=== PATIENT | male | born 1955 | race Caucasian/White ===

== ENCOUNTER 2020-05-11 00:04 | Emergency (ER) | payer MEDICARE ==
[~2020-05-11] VITALS: Ht 175.3 cm; Wt 93.0 kg
[2020-05-11 00:56] LABS: Source, Urine Clean Catch
[2020-05-11 01:00] LABS: Appearance, Urine Clear (Clear); BASOPHILS ABSOLUTE AUTO 0.04 K/mm3 (0.00-0.23); BASOPHILS PERCENT AUTO 1 % (0-2); Bilirubin, Urine Neg (Neg); Blood, Urine 1+ (Neg); Color, Urine Yellow (P-Yellow); EOSINOPHILS ABSOLUTE AUTO 0.18 K/mm3 (0.00-0.68); EOSINOPHILS PERCENT AUTO 3 % (0-6); Glucose Qualitative, Urine Neg (Neg); Hematocrit 45.7 % (37.0-53.0); Hemoglobin 14.9 g/dL (13.5-17.5); IMMATURE GRAN ABSOLUTE AUTO 0.03 K/mm3 (0.00-0.10); IMMATURE GRAN PERCENT AUTO 0 % (0-1); Ketones, Urine 1+ (Neg); LYMPHOCYTES ABSOLUTE AUTO 1.47 K/mm3 (0.84-5.20); LYMPHOCYTES PERCENT AUTO 21 % (21-46); Leukocyte Esterase, Urine 1+ (Neg); MONOCYTES ABSOLUTE AUTO 0.49 K/mm3 (0.16-1.47); MONOCYTES PERCENT AUTO 7 % (4-13); Mean Corpuscular HGB 28.7 pg (26.0-34.0); Mean Corpuscular HGB Conc 32.6 g/dL (31.5-36.5); Mean Corpuscular Volume 88 fL (80-100); Mean Platelet Volume 9.3 fL (9.1-12.4); NEUTROPHILS ABSOLUTE AUTO 4.94 K/mm3 (1.96-9.15); NEUTROPHILS PERCENT AUTO 69 % (41-73); Nitrite, Urine Neg (Neg); Platelet Count 180 K/mm3 (150-400); Protein, Urine 2+ (Neg); RDW Coefficient Variation 13.4 % (11.7-14.2); RDW Standard Deviation 43.9 fL (35.1-46.3); Specific Gravity, Urine 1.025 (1.003-1.022); Urobilinogen, Urine NORM (Normal); White Blood Cell Count 7.15 K/mm3 (4.00-11.30)
[2020-05-11 01:06] LABS: Red Blood Cells, Urine 0-2 /hpf (0-2); Squamous Epithelial Cells Not Seen /hpf (Few)
[2020-05-11 01:07] LABS: Bacteria Mod /hpf; Mucus Light (0-Heavy)
[2020-05-11 01:17] LABS: Alanine Aminotransfer (ALT/SGP 46 U/L (12-78); Albumin, Blood 3.7 g/dL (3.4-5.0); Albumin/Globulin Ratio 1.1 (0.8-1.8); Alk Phos 57 U/L (50-136); Anion Gap 5 mmol/L (6-16); Aspartate Aminotrans (AST/SGOT 43 U/L (12-37); Bilirubin, Total 0.4 mg/dL (0.1-1.0); Blood Urea Nitrogen 19 mg/dL (8-24); CO2, Blood 29 mmol/L (21-32); Calcium, Blood 8.9 mg/dL (8.5-10.1); Chloride, Blood 109 mmol/L (98-108); Creatinine, Blood 0.95 mg/dL (0.60-1.20); Globulin, Blood 3.3 g/dL (2.2-4.0); Glomerular Filtration Rate >60 (60-); Glucose, Blood 131 mg/dL (70-99); Potassium, Blood 4.7 mmol/L (3.5-5.5); Sodium, Blood 143 mmol/L (136-145)
== END 2020-05-11 02:26 | disposition home or self-care (01) ==
LOC: ER 00:04
PROVIDERS: Emergency Medicine
DX: R10.9 Unspecified abdominal pain (principal); Z88.5 Allergy status to narcotic agent; Z87.442 Personal history of urinary calculi
CPT/HCPCS: 36415; 74176; 80053; 81001; 85025; 87086; 96374; 96375; 99284-25; A9270; J1170; J1885; J7030

== ENCOUNTER 2020-07-03 18:57 | Inpatient (IN) | payer MEDICARE ==
[~2020-07-03] VITALS: Ht 175.3 cm; Wt 96.3 kg
[2020-07-03 19:36] LABS: BASOPHILS ABSOLUTE AUTO 0.03 K/mm3 (0.00-0.23); BASOPHILS PERCENT AUTO 1 % (0-2); EOSINOPHILS ABSOLUTE AUTO 0.09 K/mm3 (0.00-0.68); EOSINOPHILS PERCENT AUTO 1 % (0-6); Hematocrit 45.4 % (37.0-53.0); Hemoglobin 15.7 g/dL (13.5-17.5); IMMATURE GRAN ABSOLUTE AUTO 0.03 K/mm3 (0.00-0.10); IMMATURE GRAN PERCENT AUTO 1 % (0-1); LYMPHOCYTES ABSOLUTE AUTO 2.35 K/mm3 (0.84-5.20); LYMPHOCYTES PERCENT AUTO 37 % (21-46); MONOCYTES PERCENT AUTO 6 % (4-13); Mean Corpuscular HGB 28.8 pg (26.0-34.0); Mean Corpuscular HGB Conc 34.6 g/dL (31.5-36.5); Mean Corpuscular Volume 83 fL (80-100); Mean Platelet Volume 9.6 fL (9.1-12.4); NEUTROPHILS ABSOLUTE AUTO 3.41 K/mm3 (1.96-9.15); NEUTROPHILS PERCENT AUTO 54 % (41-73); Platelet Count 181 K/mm3 (150-400); RDW Coefficient Variation 13.2 % (11.7-14.2); RDW Standard Deviation 39.6 fL (35.1-46.3); Red Blood Cell Count 5.46 M/mm3 (4.30-5.90); White Blood Cell Count 6.31 K/mm3 (4.00-11.30)
[2020-07-03 20:01] LABS: Alanine Aminotransfer (ALT/SGP 43 U/L (12-78); Albumin, Blood 3.9 g/dL (3.4-5.0); Albumin/Globulin Ratio 1.1 (0.8-1.8); Alk Phos 57 U/L (50-136); Anion Gap 8 mmol/L (6-16); Aspartate Aminotrans (AST/SGOT 36 U/L (12-37); Bilirubin, Total 0.4 mg/dL (0.1-1.0); Blood Urea Nitrogen 15 mg/dL (8-24); Bun/Creatinine Ratio 17.3 (12.0-20.0); CO2, Blood 27 mmol/L (21-32); Calcium, Blood 9.6 mg/dL (8.5-10.1); Chloride, Blood 104 mmol/L (98-108); Creatinine, Blood 0.87 mg/dL (0.60-1.20); Globulin, Blood 3.5 g/dL (2.2-4.0); Glomerular Filtration Rate >60 (60-); Glucose, Blood 158 mg/dL (70-99); Potassium, Blood 3.7 mmol/L (3.5-5.5); Sodium, Blood 139 mmol/L (136-145); Total Protein, Blood 7.4 g/dL (6.4-8.2); Troponin I 0.324 ng/mL (0.000-0.040)
[2020-07-03] MEDS ORDERED: LOSARTAN POTASS25 M2 PO (21:14)
[2020-07-03] MEDS ORDERED: FINA5 PO (21:15)
[2020-07-03] MEDS ORDERED: DEPO-TESTO200 MG/12 IM (21:15)
[2020-07-03] MEDS ORDERED: OMEP20ER PO (21:16)
[2020-07-03] MEDS ORDERED: TAMSULOSIN HCL0.4 M1 PO (21:16)
[2020-07-03] MEDS ORDERED: MOBIC15 MG PO (21:17)
[2020-07-03] MEDS ORDERED: METF500 PO (21:17)
[2020-07-04 06:01] LABS: CHOL/HDL RATIO 3.6; Cholesterol 159 mg/dL (50-200); HDL Cholesterol 44 mg/dL (>39); LDL/HDL RATIO 2.1; Low Density Lipoprotein Chol 92 mg/dL (0-110); Triglycerides 115 mg/dL (30-160); Very Low Density Lipoprot Chol 23 mg/dL (6-32)
--- NOTE | 2020-07-04 06:01 | NUR ---
SHIFT SUMMARY PT RESTED WELL THROUGH NIGHT. ALERT AND ORIENTED - ABLE TO MAKE NEEDS KNOWN. SATS >90% ON ROOM AIR. TELE NSR. NO C/O CHEST PAIN.VSS. HEP GTT STARTED - ADJUSTMENTS MADE PER PHARMACY - SEE EMAR. INDEPENDENT IN USING URINAL AT BEDSIDE. NO BM. CARDIOLOGY CONSULTED - CALLED ANSWERING SERVICE. PENDING TROP THIS AM. CALL LIGHT WITHIN REACH, BED IN LOWEST POSITION. WILL CONTINUE TO MONITOR.
[2020-07-04 09:58] LABS: Influenza A, PCR NEGATIVE (NEGATIVE); Influenza B, PCR NEGATIVE (NEGATIVE); Resp Syncytial Virus, PCR NEGATIVE (NEGATIVE); SARS-Cov-2 (COVID-19) PCR, MMC NEGATIVE (NEGATIVE)
--- NOTE | 2020-07-04 11:38 | NUR ---
PT TO NIB ADJUSTER AT THIS TIME.
--- NOTE | 2020-07-04 15:27 | NUR ---
CARE COORDINATION REFERRAL - ADMIT:07/04/20 DISCHARGE: DX: NSTEMI CC:JESE AMBER CALL: RESIDENCE: HOME CAREGIVER: ZINA JAIME, SPOUSE / PARTNER, DX: SUSPECTED COVID, DM-TYPE 2, SPLENOMEGALY, SEE LIST DME: KNEE IMMOBILIZER CCM: NONE HOME HEALTH: NONE SUMMARY: ADMIT 07/04/20 07/04/20- PER CHART REVIEW, PT IS TO HAVE ANGIOGRAM DONE TODAY. DR. NUR SAW PT. PT DID DISCLOSE THAT HE HAS RECENTLY DIAGNOSED WITH LARGE HEPATOCARCINOMA WITH MULTIPLE TUMORS IN LIVER. HE STATED THAT HE HAS AN APPT LATER THIS WEEK WITH [facility] [facility] TREAT[place]. D/C PLAN WILL FOLLOW FOSTER WINDER RECOMMENDATIONS POST-ANGIOGRAM. -KEVYN
--- NOTE | 2020-07-04 19:27 | NUR ---
SHIFT SUMMARY: PT S/P BALLOON ANGIOPLASTY WITH RT RADIAL ACCESS SITE AND TR BAND. AIR HAS BEEN DEFLATED WITH NO SIGNS OF HEMATOMA OR EXTERNAL BLEEDING. PT DENIES CHEST PAIN OR SOB, MEDICATED PER EMAR FOR C/O NAUSEA AND HEADACHE THAT HAVE RESOLVED. PT CONTINUES A&O, ABLE TO MAKE NEEDS KNOWN. REPORT TO ISAC ARANDA.
--- NOTE | 2020-07-04 20:05 | NUR ---
REMOVED TR BAND AT 2000 - SOME MINOR SWELLING PROXIMAL TO THE TR BAND SITE, WHEN TR BAND REMOVED, NO INCREASE IN SWELLING OR SIGNS OF BLEEDING. TEGADERM PLACED OVER TR SITE, WRIST IMMOBILIZER IN PLACE. WILL CONTINUE TO MONITOR. VSS.
--- NOTE | 2020-07-05 05:13 | NUR ---
SHIFT SUMMARY PT RESTED WELL THROUGH THE NIGHT - ALERT AND ORIENTED, ABLE TO MAKE NEEDS KNWON. SATS >90% ON ROOM AIR. TELE NSR. PT VOIDING TO TOILET. NO BM. TR BAND WAS REMOVED AT 1999 - NO SIGNS OF WORSENING SWELLING. C/D/I. VSS. CALL LIGHT WITHIN REACH, BED IN LOWEST POSITION. WILL CONTINUE TO MONITOR.
--- NOTE | 2020-07-05 07:39 | NUR ---
ASSUMED CARE FROM LEVI RN PT HAS BEEN INDEPENDENT IN THE ROOM THIS MORNING. PT DENIES CHEST PAIN AND PRESSURE. PT DOES HAVE SLIGHTLY ELEVATED BP THIS MORNING AND WAS GIVEN PRN HYDRALIZINE, DR. NUR VERBALLY CONFIRMED APRESOLINE PARAMETERS SBP 160 OR GREATER. PT IS NOW RESTING IN HIS ROOM, WILL RECHECK BP THIS MORNING
[2020-07-05] MEDS ORDERED: AMLO5 PO (09:13)
[2020-07-05] MEDS ORDERED: CLOP75 PO (09:14)
[2020-07-05] MEDS ORDERED: ASPI81CH PO (09:14)
[2020-07-05] MEDS ORDERED: LIPITOR80 MG PO (09:15)
[2020-07-05] MEDS ORDERED: NITROGLYCERIN0.4 M2 SL (09:15)
--- NOTE | 2020-07-05 12:01 | NUR ---
DISCHARGE PT DISCHARGED FROM PCU AT APPROXIMATELY 1145. EDUCATION REGARDING NEW MEDICATION AND RADIAL SITE TO THE PT AND HIS SPOUSE. PT WAS UNDERSTANDING. PT LEFT VIA WHEELCHAIR AND WILL FOLLOW UP OUTPATIENT WITH CARDIOLOGY AND EFM. BP WAS SLIGHTLY ELEVATED AT DISCHARGE, DR. IRAHETA WAS COMFORTABLE ALLOWING THE PT TO DISCHARGE AND MONITOR OUTPATIENT.
--- NOTE | 2020-07-05 15:19 | NUR ---
ADMIT:07/04/20 DISCHARGE: 07/05/20 DX: NSTEMI CC:kwilcox AMBER CALL: Naomi (Dr. Ramirez ok'd that pt not have to come in right way due to cancer treatment and insurance account manager) RESIDENCE: home CAREGIVER: Naomi Brush, Spouse / Partner, DX: Suspected COVID, DM-type 2, splenomegaly, see list DME: knee immobilizer CCM: none HOME HEALTH: none SUMMARY: Admit 07/04/20 07/05/20- Met with pt. reviewed AMBER letter with pt. Pt is not sure that he can schedule a f/u within 7 days because he is going up to [facility] on for mapping and potential treatment for his liver cancer. Pt did acknowledged that he has an appt with insurance account manager and appt will be on his d/c paperwork. Pt stated that he saul make sure that he makes an appt with his PCP to follow up. Pt stated that his Naomi will be coming to get him. -alfonso
== END 2020-07-05 11:49 | disposition home or self-care (01) | DRG 251 ==
LOC: ER 18:57 → PCU 18:58
PROVIDERS: Emergency Medicine; Internal Medicine Cardiovascular Disease; ADMIT Internal Medicine
PROC: 02703ZZ Dilation of Coronary Artery, One Artery, Percutaneous Approach (ICD-10-PCS; principal; 2020-07-04)
PROC: 4A023N7 Measurement of Cardiac Sampling and Pressure, Left Heart, Percutaneous Approach (ICD-10-PCS; 2020-07-04)
PROC: B2111ZZ Fluoroscopy of Multiple Coronary Arteries using Low Osmolar Contrast (ICD-10-PCS; 2020-07-04)
DX: I21.4 Non-ST elevation (NSTEMI) myocardial infarction (principal); C22.0 Liver cell carcinoma; Z20.822 Contact with and (suspected) exposure to COVID-19; E66.9 Obesity, unspecified; Z68.30 Body mass index [BMI] 30.0-30.9, adult; E29.1 Testicular hypofunction; K74.60 Unspecified cirrhosis of liver; B19.20 Unspecified viral hepatitis C without hepatic coma; E78.5 Hyperlipidemia, unspecified; N40.0 Benign prostatic hyperplasia without lower urinary tract symptoms; I10 Essential (primary) hypertension; I25.10 Atherosclerotic heart disease of native coronary artery without angina pectoris; E11.9 Type 2 diabetes mellitus without complications; Z88.5 Allergy status to narcotic agent; Z79.899 Other long term (current) drug therapy; Z87.891 Personal history of nicotine dependence; Z79.84 Long term (current) use of oral hypoglycemic drugs; Z87.442 Personal history of urinary calculi
CPT/HCPCS: 0241U; 36415; 71275; 80053; 80061; 82947; 84484; 85025; 85347; 85730; 86850; 86900; 86901; 92920; 93005; 93010; 93306; 93356; 93458; 96374; 96376; 99152; 99153; 99285-25; A9270; C1725; C1769; C1887; C1894; G0378; J0360; J1644; J2250; J2405; J3010; J7030; J7040; J7050; Q9967

== ENCOUNTER → 2021-03-31 | Outpatient (CLI) | payer MEDICARE ==
[~2021-03-31] MED LIST: AMLO5 PO; ASPI81CH PO; CLOP75 PO; DEPO-TESTO200 MG/12 IM; FINA5 PO; LIPITOR80 MG PO; LOSARTAN POTASS25 M2 PO; METF500 PO; MOBIC15 MG PO; NITROGLYCERIN0.4 M2 SL; OMEP20ER PO; TAMSULOSIN HCL0.4 M1 PO
[2021-04-07 12:01] LABS: CARBOXY-THC 271 (.)
== END | disposition home or self-care (01) ==
LOC: LAB 14:02 → LAB SHORT 14:02
PROVIDERS: Family Medicine
DX: F12.11 Cannabis abuse, in remission (principal)
CPT/HCPCS: G0480

== ENCOUNTER → 2021-05-29 | Outpatient (CLI) | payer MEDICARE ==
[2021-06-04 09:09] LABS: CARBOXY-THC 71 (.)
== END | disposition home or self-care (01) ==
LOC: LAB 17:38 → LAB SHORT 17:38
PROVIDERS: Family Medicine
DX: F12.11 Cannabis abuse, in remission (principal)
CPT/HCPCS: G0480

== ENCOUNTER → 2022-08-28 | Outpatient (CLI) | payer MEDICARE | END | disposition home or self-care (01) | LOC: LAB SHORT 11:15 → PLD 11:15 | DX: L82.1 Other seborrheic keratosis (principal) | CPT/HCPCS: 88305 ==

== ENCOUNTER 2022-12-28 06:49 | Emergency (ER) | payer MEDICARE ==
[~2022-12-28] VITALS: Ht 175.3 cm; Wt 90.7 kg
[2022-12-28 08:17] LABS: BASOPHILS ABSOLUTE AUTO 0.03 K/mm3 (0.00-0.23); BASOPHILS PERCENT AUTO 1 % (0-2); EOSINOPHILS ABSOLUTE AUTO 0.04 K/mm3 (0.00-0.68); EOSINOPHILS PERCENT AUTO 1 % (0-6); Hematocrit 43.1 % (37.0-53.0); Hemoglobin 15.1 g/dL (13.5-17.5); IMMATURE GRAN ABSOLUTE AUTO 0.06 K/mm3 (0.00-0.10); IMMATURE GRAN PERCENT AUTO 1 % (0-1); LYMPHOCYTES ABSOLUTE AUTO 0.79 K/mm3 (0.84-5.20); LYMPHOCYTES PERCENT AUTO 12 % (21-46); MONOCYTES PERCENT AUTO 11 % (4-13); Mean Corpuscular HGB 29.3 pg (26.0-34.0); Mean Corpuscular Volume 84 fL (80-100); Mean Platelet Volume 9.1 fL (9.1-12.4); NEUTROPHILS PERCENT AUTO 75 % (41-73); Platelet Count 188 K/mm3 (150-400); RDW Coefficient Variation 13.2 % (11.7-14.2); RDW Standard Deviation 40.6 fL (35.1-46.3); Red Blood Cell Count 5.15 M/mm3 (4.30-5.90); White Blood Cell Count 6.52 K/mm3 (4.00-11.30)
[2022-12-28 08:38] LABS: Albumin, Blood 3.9 g/dL (3.4-5.0); Albumin/Globulin Ratio 1.4 (0.8-1.8); Bilirubin, Total 0.8 mg/dL (0.1-1.0); Bun/Creatinine Ratio 15.8 (12.0-20.0); Calcium, Blood 9.5 mg/dL (8.5-10.1); Creatinine, Blood 1.01 mg/dL (0.60-1.20); Globulin, Blood 2.8 g/dL (2.2-4.0); Potassium, Blood 3.8 mmol/L (3.5-5.5); Total Protein, Blood 6.7 g/dL (6.4-8.2)
[2022-12-28] MEDS ORDERED: HYDR1TAB94 PO (10:07)
[2022-12-28] MEDS ORDERED: TAMS.4ER PO (10:07)
[2022-12-28] MEDS ORDERED: ONDA4ODT MM (10:07)
[2022-12-28 10:30] VITALS: BP 124/76
== END 2022-12-28 10:30 | disposition home or self-care (01) ==
LOC: ER 06:49
PROVIDERS: Emergency Medicine
DX: N13.2 Hydronephrosis with renal and ureteral calculous obstruction (principal); I10 Essential (primary) hypertension; E11.9 Type 2 diabetes mellitus without complications; E78.5 Hyperlipidemia, unspecified; Z94.4 Liver transplant status; Z88.5 Allergy status to narcotic agent; Z79.01 Long term (current) use of anticoagulants; Z79.82 Long term (current) use of aspirin; Z79.84 Long term (current) use of oral hypoglycemic drugs; Z79.899 Other long term (current) drug therapy
CPT/HCPCS: 74177; 80053; 83690; 85025; 96374-59; 96375; 99284-25; J1170; J1885; J2405; J2765; Q9967

== ENCOUNTER → 2023-02-05 | Outpatient (CLI) | payer MEDICARE ==
[~2023-02-05] MED LIST changes: +HYDR1TAB94 PO; +ONDA4ODT MM; +TAMS.4ER PO
[2023-02-07 12:46] LABS: C DIFFICILE DNA NEGATIVE (Negative)
== END ==
LOC: LAB SHORT 14:45 → LAB 14:45
PROVIDERS: Physician Assistant
DX: R19.7 Diarrhea, unspecified (principal)
CPT/HCPCS: 87493

== ENCOUNTER 2023-05-30 00:37 | Emergency (ER) | payer MEDICARE ==
[~2023-05-30] VITALS: Ht 175.3 cm; Wt 86.2 kg
[2023-05-30] MEDS ORDERED: HYDROmorphone HCl/Pf 1MG SYR IV ONE ×4 (01:00→02:10)
[2023-05-30] MEDS ORDERED: Ondansetron HCl 2 MG / ML 2ML Vial ONE (01:06)
[2023-05-30 01:12] LABS: BASOPHILS ABSOLUTE AUTO 0.03 K/mm3 (0.00-0.23); BASOPHILS PERCENT AUTO 0 % (0-2); EOSINOPHILS ABSOLUTE AUTO 0.12 K/mm3 (0.00-0.68); EOSINOPHILS PERCENT AUTO 1 % (0-6); Hematocrit 43.5 % (37.0-53.0); Hemoglobin 14.7 g/dL (13.5-17.5); IMMATURE GRAN ABSOLUTE AUTO 0.06 K/mm3 (0.00-0.10); IMMATURE GRAN PERCENT AUTO 1 % (0-1); LYMPHOCYTES ABSOLUTE AUTO 1.61 K/mm3 (0.84-5.20); LYMPHOCYTES PERCENT AUTO 15 % (21-46); MONOCYTES ABSOLUTE AUTO 0.74 K/mm3 (0.16-1.47); MONOCYTES PERCENT AUTO 7 % (4-13); Mean Corpuscular HGB 27.7 pg (26.0-34.0); Mean Corpuscular HGB Conc 33.8 g/dL (31.5-36.5); Mean Corpuscular Volume 82 fL (80-100); Mean Platelet Volume 8.9 fL (9.1-12.4); NEUTROPHILS ABSOLUTE AUTO 8.09 K/mm3 (1.96-9.15); NEUTROPHILS PERCENT AUTO 76 % (41-73); Platelet Count 214 K/mm3 (150-400); RDW Standard Deviation 41.1 fL (35.1-46.3); White Blood Cell Count 10.65 K/mm3 (4.00-11.30)
[2023-05-30 01:35] LABS: Albumin, Blood 3.3 g/dL (3.4-5.0); Albumin/Globulin Ratio 1.1 (0.8-1.8); Bilirubin, Total 0.8 mg/dL (0.1-1.0); Bun/Creatinine Ratio 19.4 (12.0-20.0); Calcium, Blood 8.9 mg/dL (8.5-10.1); Creatinine, Blood 1.08 mg/dL (0.60-1.20); Globulin, Blood 3.1 g/dL (2.2-4.0); Potassium, Blood 4.3 mmol/L (3.5-5.5); Total Protein, Blood 6.4 g/dL (6.4-8.2)
[2023-05-30] MEDS ORDERED: Ketorolac Tromethamine 30mg Vial IV ONE (01:55)
[2023-05-30 02:18] LABS: Source, Urine Clean Catch
[2023-05-30 02:20] LABS: Bilirubin, Urine Neg (Neg); Blood, Urine 4+ (Neg); Glucose Qualitative, Urine Neg (Neg); Ketones, Urine 3+ (Neg); Leukocyte Esterase, Urine 1+ (Neg); Nitrite, Urine Neg (Neg); Protein, Urine 1+ (Neg); Urobilinogen, Urine NORM (Normal)
[2023-05-30] MEDS ORDERED: NS 1,000 ML IV SCH (02:25)
[2023-05-30 02:28] LABS: Appearance, Urine Clear (Clear); Color, Urine Yellow (P-Yellow)
[2023-05-30 02:29] LABS: Bacteria Few /hpf; Squamous Epithelial Cells Few /hpf (Few); White Blood Cells, Urine 0-2 /hpf (0-5)
[2023-05-30] MEDS ORDERED: Diazepam 5 MG / ML 2ML SYR IV ONE (02:30)
[2023-05-30 04:30] VITALS: BP 120/74
[2023-05-30] MEDS ORDERED: TAMS.4ER PO (05:26)
[2023-05-30] MEDS ORDERED: OXYC5 PO (05:26)
== END 2023-05-30 05:40 | disposition home or self-care (01) ==
LOC: ER 00:37
PROVIDERS: Emergency Medicine
DX: N13.2 Hydronephrosis with renal and ureteral calculous obstruction (principal); E86.0 Dehydration; I10 Essential (primary) hypertension; E78.5 Hyperlipidemia, unspecified; E11.9 Type 2 diabetes mellitus without complications; N40.0 Benign prostatic hyperplasia without lower urinary tract symptoms; Z79.82 Long term (current) use of aspirin; Z79.899 Other long term (current) drug therapy; Z88.5 Allergy status to narcotic agent
CPT/HCPCS: 74177; 80053; 81001; 83605; 83690; 85025; 87086; 96361; 96374-59; 96375; 96376; 99284-25; J1170; J1885; J2405; J3360; J7030; Q9967

== ENCOUNTER 2023-06-01 02:50 | Emergency (ER) | payer MEDICARE ==
[~2023-06-01] VITALS: Ht 175.3 cm; Wt 86.2 kg
[~2023-06-01 02:50] MED LIST changes: +OXYC5 PO
[2023-06-01] MEDS ORDERED: OMEP20ER PO (03:47)
[2023-06-01] MEDS ORDERED: DEPO-TESTO200 MG/18 IM (03:47)
[2023-06-01] MEDS ORDERED: PRAZOSIN HCL1 M2 (03:47)
[2023-06-01] MEDS ORDERED: HUMULIN N100 UNIT/3 SQ (03:48)
[2023-06-01] MEDS ORDERED: OZEMPIC1 MG/0.72 SQ (03:48)
[2023-06-01] MEDS ORDERED: Ketorolac Tromethamine 30mg Vial IV ONE (04:05)
[2023-06-01 04:23] LABS: BASOPHILS ABSOLUTE AUTO 0.02 K/mm3 (0.00-0.23); BASOPHILS PERCENT AUTO 0 % (0-2); EOSINOPHILS ABSOLUTE AUTO 0.14 K/mm3 (0.00-0.68); EOSINOPHILS PERCENT AUTO 2 % (0-6); Hematocrit 42.5 % (37.0-53.0); Hemoglobin 14.4 g/dL (13.5-17.5); IMMATURE GRAN ABSOLUTE AUTO 0.03 K/mm3 (0.00-0.10); IMMATURE GRAN PERCENT AUTO 1 % (0-1); LYMPHOCYTES ABSOLUTE AUTO 1.01 K/mm3 (0.84-5.20); LYMPHOCYTES PERCENT AUTO 16 % (21-46); MONOCYTES ABSOLUTE AUTO 0.51 K/mm3 (0.16-1.47); MONOCYTES PERCENT AUTO 8 % (4-13); Mean Corpuscular HGB 27.4 pg (26.0-34.0); Mean Corpuscular HGB Conc 33.9 g/dL (31.5-36.5); Mean Corpuscular Volume 81 fL (80-100); Mean Platelet Volume 9.2 fL (9.1-12.4); NEUTROPHILS ABSOLUTE AUTO 4.69 K/mm3 (1.96-9.15); NEUTROPHILS PERCENT AUTO 73 % (41-73); Platelet Count 202 K/mm3 (150-400); RDW Coefficient Variation 14.3 % (11.7-14.2); RDW Standard Deviation 41.6 fL (35.1-46.3); Red Blood Cell Count 5.26 M/mm3 (4.30-5.90)
[2023-06-01] MEDS ORDERED: FentaNYL Citrate 50 MCG/ML 2 ML Injection IV ONE (04:35)
[2023-06-01] MEDS ORDERED: Ondansetron HCl 2 MG / ML 2ML Vial IV ONE (04:40)
[2023-06-01] MEDS ORDERED: NS 1,000 ML IV SCH (04:40)
[2023-06-01 04:48] LABS: Albumin, Blood 3.3 g/dL (3.4-5.0); Albumin/Globulin Ratio 1.1 (0.8-1.8); Bilirubin, Total 0.7 mg/dL (0.1-1.0); Bun/Creatinine Ratio 16.8 (12.0-20.0); Calcium, Blood 9.5 mg/dL (8.5-10.1); Creatinine, Blood 1.13 mg/dL (0.60-1.20); Globulin, Blood 3.1 g/dL (2.2-4.0); Potassium, Blood 4.3 mmol/L (3.5-5.5); Total Protein, Blood 6.4 g/dL (6.4-8.2)
[2023-06-01 05:03] LABS: Source, Urine Clean Catch
[2023-06-01 05:22] LABS: Bilirubin, Urine Neg (Neg); Blood, Urine 3+ (Neg); Glucose Qualitative, Urine Neg (Neg); Ketones, Urine 1+ (Neg); Leukocyte Esterase, Urine Neg (Neg); Nitrite, Urine Neg (Neg); Protein, Urine Neg (Neg); Specific Gravity, Urine 1.015 (1.003-1.022); Urobilinogen, Urine NORM (Normal)
[2023-06-01 05:30] LABS: Appearance, Urine Hazy (Clear); Color, Urine Yellow (P-Yellow)
[2023-06-01 05:31] LABS: Amorphous Light (0-Heavy); Bacteria Few /hpf; Red Blood Cells, Urine 0-2 /hpf (0-2); Squamous Epithelial Cells Few /hpf (Few); White Blood Cells, Urine 0-2 /hpf (0-5)
[2023-06-01] MEDS ORDERED: RX Prepack 2 Tabs Ondansetron ODT 4MG UD ONE (06:20)
[2023-06-01] MEDS ORDERED: RX Prepack 6 Tabs Oxycodone 5mg UD ONE (06:20)
[2023-06-01] MEDS ORDERED: OXYC5 PO (06:24)
[2023-06-01] MEDS ORDERED: ONDA4ODT MM (06:24)
[2023-06-01 06:37] VITALS: BP 164/84
== END 2023-06-01 06:37 | disposition home or self-care (01) ==
LOC: ER 02:50
PROVIDERS: Student in an Organized Health Care Education/Training Program
DX: N13.2 Hydronephrosis with renal and ureteral calculous obstruction (principal); I10 Essential (primary) hypertension; E78.5 Hyperlipidemia, unspecified; E11.9 Type 2 diabetes mellitus without complications; N40.0 Benign prostatic hyperplasia without lower urinary tract symptoms; Z87.442 Personal history of urinary calculi; Z79.82 Long term (current) use of aspirin; Z79.84 Long term (current) use of oral hypoglycemic drugs; Z79.02 Long term (current) use of antithrombotics/antiplatelets; Z79.899 Other long term (current) drug therapy; Z88.5 Allergy status to narcotic agent
CPT/HCPCS: 80053; 81001; 85025; 93005; 93010; 96361; 96374; 96375; 99284-25; A9270; J1885; J2405; J3010; J7030

== ENCOUNTER 2023-06-04 13:19 | Emergency (ER) | payer MEDICARE ==
[~2023-06-04] VITALS: Ht 175.3 cm; Wt 86.6 kg
[~2023-06-04 13:19] MED LIST changes: +DEPO-TESTO200 MG/18 IM; +HUMULIN N100 UNIT/3 SQ; +OZEMPIC1 MG/0.72 SQ; +PRAZOSIN HCL1 M2
[2023-06-04 14:11] LABS: BASOPHILS ABSOLUTE AUTO 0.02 K/mm3 (0.00-0.23); BASOPHILS PERCENT AUTO 0 % (0-2); EOSINOPHILS ABSOLUTE AUTO 0.12 K/mm3 (0.00-0.68); EOSINOPHILS PERCENT AUTO 2 % (0-6); Hematocrit 41.6 % (37.0-53.0); Hemoglobin 13.5 g/dL (13.5-17.5); IMMATURE GRAN ABSOLUTE AUTO 0.04 K/mm3 (0.00-0.10); IMMATURE GRAN PERCENT AUTO 1 % (0-1); LYMPHOCYTES ABSOLUTE AUTO 0.88 K/mm3 (0.84-5.20); LYMPHOCYTES PERCENT AUTO 15 % (21-46); MONOCYTES ABSOLUTE AUTO 0.45 K/mm3 (0.16-1.47); MONOCYTES PERCENT AUTO 8 % (4-13); Mean Corpuscular HGB 27.2 pg (26.0-34.0); Mean Corpuscular HGB Conc 32.5 g/dL (31.5-36.5); Mean Corpuscular Volume 84 fL (80-100); Mean Platelet Volume 8.9 fL (9.1-12.4); NEUTROPHILS ABSOLUTE AUTO 4.52 K/mm3 (1.96-9.15); NEUTROPHILS PERCENT AUTO 75 % (41-73); Platelet Count 216 K/mm3 (150-400); RDW Coefficient Variation 14.6 % (11.7-14.2); RDW Standard Deviation 43.8 fL (35.1-46.3); Red Blood Cell Count 4.96 M/mm3 (4.30-5.90); White Blood Cell Count 6.03 K/mm3 (4.00-11.30)
[2023-06-04 14:35] LABS: Albumin, Blood 3.3 g/dL (3.4-5.0); Albumin/Globulin Ratio 1.1 (0.8-1.8); Bilirubin, Total 0.6 mg/dL (0.1-1.0); Bun/Creatinine Ratio 10.9 (12.0-20.0); Calcium, Blood 9.5 mg/dL (8.5-10.1); Creatinine, Blood 1.74 mg/dL (0.60-1.20); Globulin, Blood 3.1 g/dL (2.2-4.0); Potassium, Blood 4.6 mmol/L (3.5-5.5); Total Protein, Blood 6.4 g/dL (6.4-8.2)
[2023-06-04 15:02] LABS: Appearance, Urine Clear (Clear); Bilirubin, Urine Neg (Neg); Blood, Urine 2+ (Neg); Color, Urine Yellow (P-Yellow); Glucose Qualitative, Urine Neg (Neg); Ketones, Urine Neg (Neg); Leukocyte Esterase, Urine 1+ (Neg); Nitrite, Urine Neg (Neg); Protein, Urine Neg (Neg); Source, Urine Clean Catch; Urobilinogen, Urine NORM (Normal)
[2023-06-04 15:30] LABS: Bacteria Few /hpf; Squamous Epithelial Cells Rare /hpf (Few)
[2023-06-04] MEDS ORDERED: NS 1,000 ML IV SCH (17:25)
[2023-06-04] MEDS ORDERED: HYDROmorphone HCl/Pf 1MG SYR IV ONE (17:25)
[2023-06-04] MEDS ORDERED: CefTRIAXone Sodium 1,000 MG in NS 50 ML IV ONE (17:25)
[2023-06-04] MEDS ORDERED: Ondansetron HCl 2 MG / ML 2ML Vial IV ONE (17:25)
[2023-06-04 18:30] VITALS: BP 135/84
[2023-06-04] MEDS ORDERED: Percocet 5-3251 EACH PO (18:42)
[2023-06-04] MEDS ORDERED: CEFD300 PO (18:42)
[2023-06-04] MEDS ORDERED: RX Prepack 6 Tabs Oxycodone 5mg UD ONE (18:45)
== END 2023-06-04 18:56 | disposition home or self-care (01) ==
LOC: ER 13:19
PROVIDERS: Emergency Medicine
DX: N13.6 Pyonephrosis (principal); N17.9 Acute kidney failure, unspecified; E11.9 Type 2 diabetes mellitus without complications; I10 Essential (primary) hypertension; E78.5 Hyperlipidemia, unspecified; Z88.5 Allergy status to narcotic agent; Z79.899 Other long term (current) drug therapy; Z79.4 Long term (current) use of insulin; Z79.82 Long term (current) use of aspirin; Z79.84 Long term (current) use of oral hypoglycemic drugs
CPT/HCPCS: 76770; 80053; 81001; 85025; 87086; 96365; 96375; 99284-25; A9270; J0696; J1170; J2405; J7030

== ENCOUNTER → 2024-07-29 | Outpatient (CLI) | payer MEDICARE ==
[~2024-07-29] MED LIST changes: +CEFD300 PO; +Percocet 5-3251 EACH PO
== END ==
LOC: LAB 13:58 → LAB SHORT 13:58
DX: C65.2 Malignant neoplasm of left renal pelvis (principal)
CPT/HCPCS: 87077; 87086; 87186